=== PATIENT | male | born 1945 | race Caucasian/White ===

== ENCOUNTER 2017-01-22 08:41 | Outpatient (CLI) | payer MEDICARE, BC | END 2017-01-22 08:42 | disposition home or self-care (01) | DX: I48.0 Paroxysmal atrial fibrillation (principal); E78.5 Hyperlipidemia, unspecified ==

== ENCOUNTER 2017-03-07 09:48 | Outpatient (CLI) | payer MEDICARE, BC | END 2017-03-07 09:49 | disposition home or self-care (01) | DX: R19.7 Diarrhea, unspecified (principal) ==

== ENCOUNTER 2017-03-11 08:00 | Outpatient (CLI) | payer MEDICARE, BC | END 2017-03-11 23:59 | disposition home or self-care (01) | DX: R19.7 Diarrhea, unspecified (principal) ==

== ENCOUNTER 2017-03-12 18:44 | Outpatient (CLI) | payer MEDICARE, BC | END 2017-03-12 18:45 | disposition home or self-care (01) | DX: R19.7 Diarrhea, unspecified (principal) ==

== ENCOUNTER 2019-06-16 08:00 | Outpatient (CLI) | payer MEDICARE, BC ==
[2019-06-16 12:32] LABS: BASOPHILS # (AUTO) 0.1 10^3/uL (0.0-0.1); BASOPHILS % (AUTO) 0.9 %; EOSINOPHILS # (AUTO) 0.4 10^3/uL (0.0-0.7); EOSINOPHILS % (AUTO) 6.4 %; HGB - HEMOGLOBIN 14.1 g/dL (14.0-18.0); LYMPHOCYTES # (AUTO) 2.1 10^3/uL (1.5-3.5); LYMPHOCYTES % (AUTO) 36.6 %; MEAN CORPUSCULAR HEMOGLOBIN 30.1 pg (27.0-31.0); MEAN CORPUSCULAR HGB CONC 32.7 g/dL (32.0-36.0); MEAN CORPUSCULAR VOLUME 91.9 fL (80.0-94.0); MEAN PLATELET VOLUME 10.5 fL (7.4-11.4); MONOCYTES # (AUTO) 0.6 10^3/uL (0.0-1.0); MONOCYTES % (AUTO) 10.8 %; NEUTROPHILS # (AUTO) 2.5 10^3/uL (1.5-6.6); NEUTROPHILS % (AUTO) 45.1 %; PLT - PLATELET COUNT 200 10^3/uL (130-450); RED BLOOD COUNT 4.69 10^6/uL (4.70-6.10); RED CELL DISTRIBUTION WIDTH 14.3 % (12.0-15.0); WHITE BLOOD COUNT 5.6 x10^3/uL (4.8-10.8)
[2019-06-16 12:54] LABS: ALBUMIN/GLOBULIN RATIO 1.4 (1.0-2.2); BILIRUBIN,TOTAL 0.5 mg/dL (0.2-1.0); CALCIUM 9.5 mg/dL (8.5-10.3); CREATININE 0.9 mg/dL (0.6-1.2); TOTAL PROTEIN 6.8 g/dL (6.7-8.2)
== END 2019-06-16 08:01 | disposition home or self-care (01) ==
LOC: LAB.WCP 08:00
PROVIDERS: ATTEND Internal Medicine Gastroenterology
DX: K52.9 Noninfective gastroenteritis and colitis, unspecified (principal); I48.0 Paroxysmal atrial fibrillation; I25.10 Atherosclerotic heart disease of native coronary artery without angina pectoris
CPT/HCPCS: 36415; 80053; 85025

== ENCOUNTER 2019-06-30 10:47 | Day surgery (SDC) | payer MEDICARE, BC ==
[2019-06-30] MEDS ORDERED: LACTATED RINGERS 1,000 ML IV ONE (11:11)
[2019-06-30] MEDS ORDERED: fentaNYL 250 MCG/5 ML VIAL IVP ONE (13:36)
[2019-06-30] MEDS ORDERED: MIDAZOLAM 2 MG/2 ML VIAL IVP ONE (13:36)
[2019-06-30 14:55] VITALS: BP 108/77
== END 2019-06-30 10:48 | disposition home or self-care (01) ==
LOC: SDS 10:47
PROVIDERS: ATTEND Internal Medicine Gastroenterology
PROC: 0DBF8ZX Excision of Right Large Intestine, Via Natural or Artificial Opening Endoscopic, Diagnostic (ICD-10-PCS; 2019-06-30)
PROC: 0DBG8ZX Excision of Left Large Intestine, Via Natural or Artificial Opening Endoscopic, Diagnostic (ICD-10-PCS; 2019-06-30)
PROC: 0DBM8ZZ Excision of Descending Colon, Via Natural or Artificial Opening Endoscopic (ICD-10-PCS; principal; 2019-06-30 12:15)
DX: K58.0 Irritable bowel syndrome with diarrhea (principal); D12.4 Benign neoplasm of descending colon; I48.0 Paroxysmal atrial fibrillation; Z79.01 Long term (current) use of anticoagulants; Z79.899 Other long term (current) drug therapy; Z85.46 Personal history of malignant neoplasm of prostate
CPT/HCPCS: 45380; 45385; 85610; J3010; J7120

== ENCOUNTER 2019-07-10 08:00 | Outpatient (CLI) | payer MEDICARE, BC | END 2019-07-10 23:59 | disposition home or self-care (01) | LOC: LAB.WCP 08:00 | PROVIDERS: ATTEND Internal Medicine Gastroenterology | DX: R19.7 Diarrhea, unspecified (principal) | CPT/HCPCS: 36415; 82784; 83516 ==

== ENCOUNTER 2019-07-21 08:00 | Outpatient (CLI) | payer MEDICARE, BC | END 2019-07-21 23:59 | disposition home or self-care (01) | LOC: LAB.N 08:00 | PROVIDERS: ATTEND Internal Medicine Cardiovascular Disease | DX: I48.0 Paroxysmal atrial fibrillation (principal) | CPT/HCPCS: 85610 ==

== ENCOUNTER 2019-08-05 08:00 | Outpatient (CLI) | payer MEDICARE, BC ==
[2019-08-05 12:28] LABS: BASOPHILS % (AUTO) 0.5 %; EOSINOPHILS # (AUTO) 0.3 10^3/uL (0.0-0.7); EOSINOPHILS % (AUTO) 4.3 %; HGB - HEMOGLOBIN 14.2 g/dL (14.0-18.0); LYMPHOCYTES # (AUTO) 2.1 10^3/uL (1.5-3.5); LYMPHOCYTES % (AUTO) 33.6 %; MEAN CORPUSCULAR HEMOGLOBIN 29.1 pg (27.0-31.0); MEAN CORPUSCULAR HGB CONC 32.5 g/dL (32.0-36.0); MEAN CORPUSCULAR VOLUME 89.5 fL (80.0-94.0); MEAN PLATELET VOLUME 11.2 fL (7.4-11.4); MONOCYTES # (AUTO) 0.6 10^3/uL (0.0-1.0); MONOCYTES % (AUTO) 9.3 %; NEUTROPHILS # (AUTO) 3.3 10^3/uL (1.5-6.6); NEUTROPHILS % (AUTO) 52.1 %; PLT - PLATELET COUNT 164 10^3/uL (130-450); RED BLOOD COUNT 4.88 10^6/uL (4.70-6.10); RED CELL DISTRIBUTION WIDTH 14.4 % (12.0-15.0); WHITE BLOOD COUNT 6.3 x10^3/uL (4.8-10.8)
[2019-08-05 12:58] LABS: ALBUMIN 4.3 g/dL (3.2-5.5); ALBUMIN/GLOBULIN RATIO 1.5 (1.0-2.2); ALKALINE PHOSPHATASE 41 IU/L (42-121); ALT ALANINE AMINOTRANSFERASE 21 IU/L (10-60); AST ASPARTATE AMINOTRANSFERASE 25 IU/L (10-42); BILIRUBIN,TOTAL 0.5 mg/dL (0.2-1.0); BUN - BLOOD UREA NITROGEN 25 mg/dL (6-20); CALCIUM 9.4 mg/dL (8.5-10.3); CARBON DIOXIDE - CO2 24 mmol/L (21-32); CHLORIDE 106 mmol/L (101-111); CHOL/HDL RATIO 2.8 (<5.0); CHOLESTEROL 189 mg/dL; CREATININE 1.1 mg/dL (0.6-1.2); GFR - MDRD 65 (>89); GLUCOSE 103 mg/dL (70-100); HDL CHOLESTEROL 68 mg/dL; LDL CHOLESTEROL,CALCULATED 109 mg/dL; LDL/HDL RATIO 1.6 (<3.6); SODIUM 138 mmol/L (135-145); TOTAL PROTEIN 7.1 g/dL (6.7-8.2); VLDL CHOLESTEROL 12 mg/dL
== END 2019-08-05 23:59 ==
LOC: LAB.WCP 08:00
PROVIDERS: ATTEND Family Medicine
DX: I48.0 Paroxysmal atrial fibrillation (principal); I25.10 Atherosclerotic heart disease of native coronary artery without angina pectoris; C61 Malignant neoplasm of prostate
CPT/HCPCS: 36415; 80053; 80061; 83721; 83735; 84153; 85025

== ENCOUNTER 2019-11-17 13:32 | Outpatient (CLI) | payer MEDICARE, BC ==
--- NOTE | 2019-11-17 16:19 | XRAY Report ---
Reason: LEFT RT KNEE PAIN Procedure Date: 11/17/2019 Accession Number: [id number] / [id number] Procedure: XR - Knee 3 View BILAT CPT Code: Final Report FULL RESULT: EXAMS: 1. Right Knee Radiography 2. Left Knee Radiography EXAM DATE:11/17/2019 01:57 PM. CLINICAL HISTORY:LEFT RT KNEE PAIN. COMPARISON: None. TECHNIQUE: 3 views each. FINDINGS: Right Knee: Bones: Normal. No fractures or bone lesions. Joints: 3 compartment joint space narrowing with marginal lipping. Chondrocalcinosis compatible with pseudogout. Trace joint effusion. Soft Tissues: Vascular calcifications. Left Knee: Bones: Normal. No fractures or bone lesions. Joints: 3 compartment joint space narrowing. Minimal marginal lipping. Moderate to large joint effusion. Soft Tissues: Vascular calcifications. IMPRESSION: 1. Moderate degenerative disease on the right with chondrocalcinosis. 2. Mild degenerative joint disease on the left with moderate to large joint effusion. RADIA
== END 2019-11-17 13:33 | disposition home or self-care (01) ==
LOC: DI 13:32
PROVIDERS: ATTEND Family Medicine
DX: M17.0 Bilateral primary osteoarthritis of knee (principal); M11.261 Other chondrocalcinosis, right knee; M25.462 Effusion, left knee

== ENCOUNTER 2020-09-13 08:00 | Outpatient (CLI) | payer MEDICARE, BC ==
[2020-09-13 12:21] LABS: BASOPHILS % (AUTO) 0.7 %; EOSINOPHILS # (AUTO) 0.2 10^3/uL (0.0-0.7); EOSINOPHILS % (AUTO) 2.7 %; HGB - HEMOGLOBIN 13.7 g/dL (14.0-18.0); LYMPHOCYTES # (AUTO) 1.6 10^3/uL (1.5-3.5); LYMPHOCYTES % (AUTO) 27.4 %; MEAN CORPUSCULAR HEMOGLOBIN 29.6 pg (27.0-31.0); MEAN CORPUSCULAR HGB CONC 32.7 g/dL (32.0-36.0); MEAN CORPUSCULAR VOLUME 90.5 fL (80.0-94.0); MEAN PLATELET VOLUME 10.5 fL (7.4-11.4); MONOCYTES # (AUTO) 0.5 10^3/uL (0.0-1.0); MONOCYTES % (AUTO) 9.3 %; NEUTROPHILS # (AUTO) 3.5 10^3/uL (1.5-6.6); NEUTROPHILS % (AUTO) 59.6 %; PLT - PLATELET COUNT 224 10^3/uL (130-450); RED BLOOD COUNT 4.63 10^6/uL (4.70-6.10); WHITE BLOOD COUNT 5.8 x10^3/uL (4.8-10.8)
[2020-09-13 12:33] LABS: CALCIUM 9.6 mg/dL (8.5-10.3)
[2020-09-13 12:52] LABS: HEMOGLOBIN A1c% 5.8 % (4.27-6.07)
== END 2020-09-13 23:59 | disposition home or self-care (01) ==
LOC: LAB.WCP 08:00
PROVIDERS: ATTEND Family Medicine
DX: I25.10 Atherosclerotic heart disease of native coronary artery without angina pectoris (principal)
CPT/HCPCS: 36415; 80048; 83036; 85025

== ENCOUNTER 2020-09-20 08:49 | Outpatient (CLI) | payer MEDICARE, BC ==
[2020-09-20] MEDS ORDERED: AMINOPHYLLINE 500 MG/20 ML VIAL ONE (11:21)
[2020-09-20] MEDS ORDERED: REGADENOSON 0.4 MG/5 ML SYRINGE IVP ONE ×2 (11:21→14:06)
--- NOTE | 2020-09-20 14:57 | CARDIAC PROCEDURE NOTE ---
DATE OF SERVICE: 09/13/2020 Physician: Chantal Fraser MD, [facility] INDICATION: Coronary artery disease. CARDIAC RISK FACTORS: Male gender and hyperlipidemia. The patient also has known CAD with stenting done about 20 years ago. DESCRIPTION OF PROCEDURE: After signing informed consent, the patient underwent a Lexiscan pharmaceutical stress test with nuclear myocardial perfusion imaging. RESTING HEART RATE: 97. PEAK HEART RATE: 150 (104% predicted maximum heart rate for age). RESTING BLOOD PRESSURE: 131/98. PEAK BLOOD PRESSURE: 126/91. Lexiscan was infused per protocol. The patient had brief flushing and shortness of breath. He had no chest pain or other symptoms. Oxygen saturation remained 98-99% on room air throughout the test. RESTING EKG: Atrial fibrillation/flutter, LVH voltage. EKG AT PEAK: New [address] depressions developed in leads V4 through V6 and new downsloping ST depressions developed in leads II, III and aVF. These EKG changes resolved slowly over 4 minutes. SUMMARY: 1. Abnormal resting EKG with rhythm showing atrial fibrillation/flutter. 2. New ST segment changes developed, suggesting ischemia. 3. Nuclear images showed a moderate sized fixed defect of the septum, but no areas of ischemia, and a preserved LVEF. There was comparison made to a 05/18/08 scan which then had moderate ischemia in the same distribution in the septum. This suggests that there has been a completed WV in that region, cannot time how recent. IMPRESSION: 1. Abnormal stress test showing a septal WV, cannot grade how recent. RECOMMENDATIONS: 1. Cardiology evaluation advised. cc: Liam Bear DO TD: 09/20/2020 12:59 [facility]
--- NOTE | 2020-09-20 16:07 | Nuclear Medicine Report ---
PROCEDURE: Rest and exercise myocardial perfusion SPECT with gated imaging and ejection fraction INDICATIONS: CAD RADIOPHARMACEUTICAL: 8.1 mCi Tc-99m Myoview IV at rest and 5.0 mCi Tc-99m Myoview IV at peak exercis e. Ozl-vdy-hzbkbszl was performed. TECHNIQUE: Radiopharmaceutical was injected at peak stress test, and also at rest. SPECT images wer e obtained. SPECT myocardial perfusion images were displayed in short axis, horizontal long axis, an d vertical long axis views. Gated images were reviewed using Auto[employer]ANT software. COMPARISON: A report of myocardial perfusion scan dated 05/18/2008. FINDINGS: Raw data: There is good myocardial labeling by radiotracer. No significant motion artifacts. Lung- to-heart ratio is 0.61 (normal is less than 0.38 for tetrafosmin tracer). Left ventricle function: Gated images demonstrate normal left ventricle wall thickening. No segment al wall motion abnormality. No transient ischemic dilation; TID is 1.00 (normal less than 1.3). The left ventricle resting end-diastolic volume is normal. Left ventricle stress ejection fraction is 7 1%; normal values are above 45%. Myocardial perfusion: There is a moderate size, kewk-ls-wyskziiizs severe, fixed perfusion defect in the septum, consistent with myocardial infarction. No reversible perfusion defects to suggest myoca rdial ischemia. Based on a prior report, there was hajv-md-vgjmrond ischemia in the septum on 008. IMPRESSION: 1. Abnormal myocardial perfusion images. There is a moderate size, mhoi-au-zgpumuuyju severe, fixed d efect in the left ventricular septum, consistent with myocardial infarction. 2. No reversible perfusion defect to suggest myocardial ischemia on the current exam. 3. Normal left ventricular volume and systolic function. PQRS ATTESTATIONS: Measure 322 - Is this imaging test primarily performed on a low-risk surgery patient for preoperative evaluation within 30 days preceding their low-risk non-cardiac surgery? Low-risk surgery is defined as cardiac or myocardial infarction less than 1%, including (but not limited to) endoscopic pr ocedures, superficial procedures, cataract surgery, and excisional breast surgery: Answer: No Measure 323 - Is this imaging test performed primarily for the monitoring of an asymptomatic patient who had percutaneous coronary intervention on the visit date or within 2 years of the visit date? An swer: No Measure 324 - Is this imaging test performed primarily for the initial detection and risk assessment on an asymptomatic, low coronary heart disease patient? Low CHD risk definition = clinicians should consider the maximum number of available patient factors used to estimate risk based on [place] (A TP III criteria), typically age, gender, diabetes, smoking status, and use of blood pressure medicati on, and integrate age appropriate estimates for missing elements, such as LDL or standard blood press ure. Answer: No Reviewed by: Chencho Shields MD on 09/20/2020 4:06 PM PST Approved by: Chencho Shields MD on 09/20/2020 4:06 PM PST Station ID: [id number]
== END 2020-09-20 08:50 | disposition home or self-care (01) ==
LOC: DI 08:49
PROVIDERS: ATTEND Family Medicine
DX: I25.10 Atherosclerotic heart disease of native coronary artery without angina pectoris (principal); R94.31 Abnormal electrocardiogram [ECG] [EKG]
CPT/HCPCS: 78452; 93017; A9500; J2785

== ENCOUNTER 2020-11-10 07:50 | Outpatient (CLI) | payer MEDICARE, BC ==
[2020-11-10 13:34] LABS: BASOPHILS # (AUTO) 0.1 10^3/uL (0.0-0.1); BASOPHILS % (AUTO) 0.9 %; EOSINOPHILS # (AUTO) 0.6 10^3/uL (0.0-0.7); EOSINOPHILS % (AUTO) 9.5 %; HCT - HEMATOCRIT 43.1 % (42.0-52.0); HGB - HEMOGLOBIN 13.9 g/dL (14.0-18.0); LYMPHOCYTES # (AUTO) 1.8 10^3/uL (1.5-3.5); LYMPHOCYTES % (AUTO) 27.9 %; MEAN CORPUSCULAR HEMOGLOBIN 29.4 pg (27.0-31.0); MEAN CORPUSCULAR HGB CONC 32.3 g/dL (32.0-36.0); MEAN CORPUSCULAR VOLUME 91.1 fL (80.0-94.0); MEAN PLATELET VOLUME 11.3 fL (7.4-11.4); MONOCYTES # (AUTO) 0.5 10^3/uL (0.0-1.0); MONOCYTES % (AUTO) 7.3 %; NEUTROPHILS # (AUTO) 3.4 10^3/uL (1.5-6.6); NEUTROPHILS % (AUTO) 54.2 %; PLT - PLATELET COUNT 162 10^3/uL (130-450); RED BLOOD COUNT 4.73 10^6/uL (4.70-6.10); RED CELL DISTRIBUTION WIDTH 14.1 % (12.0-15.0); WHITE BLOOD COUNT 6.3 x10^3/uL (4.8-10.8)
[2020-11-10 13:41] LABS: CALCIUM 9.7 mg/dL (8.5-10.3); CREATININE 0.9 mg/dL (0.6-1.2); POTASSIUM 4.1 mmol/L (3.5-5.0)
== END 2020-11-10 23:59 | disposition home or self-care (01) ==
LOC: LAB.WCP 07:50
PROVIDERS: ATTEND Nurse Practitioner
DX: I25.10 Atherosclerotic heart disease of native coronary artery without angina pectoris (principal); Z79.899 Other long term (current) drug therapy
CPT/HCPCS: 36415; 80048; 85025

== ENCOUNTER 2020-12-30 12:40 | Outpatient (CLI) | payer MEDICARE, BC | END 2020-12-30 12:41 | disposition home or self-care (01) | LOC: COV 12:40 | PROVIDERS: ATTEND Surgery | DX: Z01.812 Encounter for preprocedural laboratory examination (principal); K40.90 Unilateral inguinal hernia, without obstruction or gangrene, not specified as recurrent; Z20.822 Contact with and (suspected) exposure to COVID-19 ==

== ENCOUNTER 2021-01-03 06:20 | Day surgery (SDC) | payer MEDICARE, BC ==
[~2021-01-03 06:20] MED LIST: LACTATED RINGERS 1,000 ML IV ONE
[2021-01-03] MEDS ORDERED: ceFAZolin 2 GM/50 ML 2 GM/50 ML BAG IV ONE (06:33)
[2021-01-03] MEDS ORDERED: LIDOCAINE 2%-EPI 1:100000 20 ML MDV ONE (07:04)
[2021-01-03] MEDS ORDERED: BUPIVACAINE 0.25% PF 10 ML VIAL ONE (07:05)
--- NOTE | 2021-01-03 07:30 | ANESTHESIA ---
Pre-Anesthesia VS, & Labs - Diagnosis R inguinal hernia - Procedure R inguinal hernia repair Vital Signs: Temp Pulse Resp BP Pulse Ox 36.5 C 66 16 128/84 H 98 01/03/21 06:43 01/03/21 06:43 01/03/21 06:43 01/03/21 06:43 01/03/21 06:43 Height: 6 ft Weight (kg): 79.2 kg Body Mass Index: 23.6 BMI Classification: Healthy weight - NPO >8 hours - Lab Results Lab results reviewed: Yes Home Medications and Allergies Atorvastatin [Lipitor] 40 mg PO DAILY 11/15/15 Digoxin 0.125 mg PO DAILY 11/15/15 Ibuprofen 2 tab PO DAILY PRN 11/15/15 Loperamide HCl [Loperamide] 4 mg PO BID 11/15/15 Psyllium [Metamucil] 1 packet PO BID 11/15/15 Warfarin Sodium [Coumadin] 7.5 mg PO DAILY 11/15/15 Allergies/Adverse Reactions: Allergies Allergy/AdvReac Type Severity Reaction Status Date / Time No Known Drug Allergies Allergy Verified 01/03/21 06:57 Anes History & Medical History - Anesthetic History Anesthesia Complications: reports: No previous complications Family history of Anesthesia Complications: Denies Family history of Malignant Hyperthermia: Denies - Medical History Cardiovascular: reports: High cholesterol, Coronary artery disease, Atrial fibrillation Pulmonary: reports: None Gastrointestinal: reports: Colon polyps, Other Urinary: reports: Other Musculoskeletal: reports: Osteoarthritis Endocrine/Autoimmune: reports: None Skin: reports: None - Surgical History General: reports: Colonoscopy Eyes Ears Nose Throat (EENT): reports: Cataracts Cardiothoracic: reports: Coronary stent Urologic: reports: Prostatic surgery Orthopedic: reports: Hip replacement Exam General: Alert, Oriented x3, Cooperative Dental: WNL Mouth Opening: Greater than 4 Fingerbreadths Neck Mobility: Normal Mallampati classification: I Thyromental Distance: 4-6 cm Respiratory: Lungs clear, Normal breath sounds, No respiratory distress Cardiovascular: Other (AF <100) Neurological: Normal speech Mental/Cognitive Status: Alert/Oriented X3, Normal for patient Cognitive Status: Within normal limits Plan Anesthesia Type: MAC Consent for Procedure(s) Verified and Reviewed: Yes Code Status: Attempt Resuscitation ASA classification: 2-Mild systemic disease Is this case an emergency?: No
[2021-01-03] MEDS ORDERED: PROPOFOL 500 MG/50 ML 500 MG/50 ML VIAL ONE (07:41)
[2021-01-03] MEDS ORDERED: LIDOCAINE 1% 50 ML MDV ONE (07:59)
[2021-01-03] MEDS ORDERED: LIDOCAINE 1% 50 ML MDV SUBQ ONE (08:04)
[2021-01-03] MEDS ORDERED: BUPIVACAINE 0.25% PF 10 ML VIAL SUBQ ONE (08:04)
[2021-01-03] MEDS ORDERED: KETOROLAC 30 MG/ML VIAL ONE (08:22)
[2021-01-03] MEDS ORDERED: LACTATED RINGERS 1,000 ML IV ONE (09:03)
[2021-01-03] MEDS ORDERED: HYDROcod/ACETAM 5/325 MG TABLET PO PRN (09:04)
--- NOTE | 2021-01-03 09:08 | OPERATIVE REPORT ---
Operative Report - General Procedure Date: 01/03/21 Pre-Op Diagnosis: right inguinal hernia Procedure Performed: open right inguinal hernia repair with mesh Post Op Diagnosis: indirect rih - Procedure Note Primary Surgeon: beth guerrero Anesthesia Technique: Local, MAC Pathology: not sent. sac and fat removed Estimated Blood Loss (mL): 5 Complications: none
[2021-01-03 09:33] VITALS: BP 113/84
--- NOTE | 2021-01-03 09:36 | PROCEDURE REPORT ---
DATE OF SERVICE: 01/03/2021 Physician: James Neves MD PREOPERATIVE DIAGNOSIS: Right inguinal hernia. POSTOPERATIVE DIAGNOSIS: Right inguinal hernia, indirect. PROCEDURE PERFORMED: Open right inguinal hernia repair with mesh, Ana. SURGEON: James Neves MD TECHNICIAN SUPPORT ASSOCIATION: None. ANESTHESIA: Monitored anesthesia care, IV sedation, local anesthesia. COMPLICATIONS: None. SPECIMEN: Herniated preperitoneal adipose tissue and indirect hernia sac removed; however, not sent for pathology. ESTIMATED BLOOD LOSS: Less than 5 mL DRAINS: None. PROSTHETIC: Polypropylene mesh placed in Ana fashion. FINDINGS: As above, an indirect inguinal hernia with a fair amount of scar tissue. The ilioinguinal nerve was scarred to the external ring. It was carefully released. All 3 nerves were carefully protected and preserved. The iliohypogastric nerve lay just medial to the mesh. INDICATIONS FOR PROCEDURE: The patient is an active 75-year-old gentleman with a very symptomatic right inguinal hernia. He presents for open repair with mesh. Risks discussed, alternatives discussed, all questions answered and consent obtained. DESCRIPTION OF PROCEDURE: The patient was properly identified and brought to the operating room and placed in supine position. He voided prior to surgery. Monitored anesthesia care and IV sedation was given. He was prepped and draped in a sterile fashion and given preoperative IV antibiotics. Local anesthetic was given throughout the procedure. A 5 cm incision was made in the right inguinal region just cephalad of the pubic tubercle. Dissection proceeded sharply with cutting current. The superficial epigastric vein was identified, clamped, divided, and tied with 3-0 Vicryl. He had an additional small arterial which was also tied with a 3-0 Vicryl. The aponeurosis was opened in the direction of its fibers, extending to the external ring. The ilioinguinal nerve was sharply mobilized away from the external ring. Cord structures were mobilized and brought up. The shelving border of Poupart's ligament was sharply developed and Scotty's ligament, pubic tubercle defined. Patient had chronic scar tissue, which was carefully released. The ilioinguinal nerve was kept with the cord structures. The indirect hernia sac was mobilized and brought up. It was suture ligated with a 2-0 silk. Preperitoneal adipose tissue was removed with clamps and 2-0 silk tie. The mesh was then cut to size and with tails. It was placed and secured with multiple interrupted 0 Ethibond or Ti-Cron sutures. Sutures were placed close to the pubic tubercle along the shelving border of Poupart's ligament and medially along musculature or fascia of the internal oblique. The medial tail of the mesh was secured to the shelving border of Poupart's ligament with two interrupted 0 Ethibond sutures, recreating the internal ring of appropriate size. The aponeurosis was closed with a running 2-0 Vicryl. Mine's was closed with interrupted 3-0 Vicryl suture. Skin was closed with a running 4-0 Monocryl subcuticular suture. A dressing was applied. He tolerated the procedure well and transferred for himself to [facility] and was brought to recovery in good condition. TD: 01/03/2021 09:27 GABRIELE
--- NOTE | 2021-01-03 13:52 | ANESTHESIA POST OP EVALUATION ---
Anesthesia Post Eval - Post Anesthesia Eval Vitals: Last Vital Signs Temp 36.3 C L 01/03/21 09:31 Pulse 71 01/03/21 09:31 Resp 18 01/03/21 09:31 BP 113/84 H 01/03/21 09:31 Pulse Ox 98 01/03/21 09:31 CV Function Including HR & BP: positive: Stable Pain Control: positive: Satisfactory Nausea & Vomiting: positive: Negative Mental Status: positive: Baseline Respiratory Status: Airway Patent Hydration Status: Satisfactory Anesthesia Complications: positive: None
== END 2021-01-03 06:21 | disposition home or self-care (01) ==
LOC: SDS 06:20
PROVIDERS: ATTEND Surgery
DX: K40.90 Unilateral inguinal hernia, without obstruction or gangrene, not specified as recurrent (principal); I48.0 Paroxysmal atrial fibrillation; I25.10 Atherosclerotic heart disease of native coronary artery without angina pectoris; Z95.5 Presence of coronary angioplasty implant and graft; Z79.01 Long term (current) use of anticoagulants
CPT/HCPCS: 49505; C1781; J0690; J7120

== ENCOUNTER 2021-04-17 16:41 | Outpatient (CLI) | payer MEDICARE, BC | END 2021-04-17 16:42 | disposition home or self-care (01) | LOC: COV 16:41 | PROVIDERS: ATTEND Internal Medicine Cardiovascular Disease | DX: Z01.812 Encounter for preprocedural laboratory examination (principal); I25.118 Atherosclerotic heart disease of native coronary artery with other forms of angina pectoris; Z20.822 Contact with and (suspected) exposure to COVID-19 ==

== ENCOUNTER 2021-05-10 08:00 | Outpatient (CLI) | payer MEDICARE, BC ==
[2021-05-10 12:21] LABS: BASOPHILS # (AUTO) 0.1 10^3/uL (0.0-0.1); BASOPHILS % (AUTO) 1.1 %; EOSINOPHILS # (AUTO) 0.5 10^3/uL (0.0-0.7); EOSINOPHILS % (AUTO) 10.4 %; HCT - HEMATOCRIT 41.6 % (42.0-52.0); HGB - HEMOGLOBIN 13.4 g/dL (14.0-18.0); LYMPHOCYTES # (AUTO) 1.5 10^3/uL (1.5-3.5); LYMPHOCYTES % (AUTO) 30.7 %; MEAN CORPUSCULAR HEMOGLOBIN 28.6 pg (27.0-31.0); MEAN CORPUSCULAR HGB CONC 32.2 g/dL (32.0-36.0); MEAN CORPUSCULAR VOLUME 88.7 fL (80.0-94.0); MEAN PLATELET VOLUME 10.7 fL (7.4-11.4); MONOCYTES # (AUTO) 0.5 10^3/uL (0.0-1.0); MONOCYTES % (AUTO) 10.8 %; NEUTROPHILS # (AUTO) 2.2 10^3/uL (1.5-6.6); NEUTROPHILS % (AUTO) 46.8 %; PLT - PLATELET COUNT 180 10^3/uL (130-450); RED BLOOD COUNT 4.69 10^6/uL (4.70-6.10); RED CELL DISTRIBUTION WIDTH 14.9 % (12.0-15.0); WHITE BLOOD COUNT 4.7 x10^3/uL (4.8-10.8)
[2021-05-10 13:12] LABS: ALBUMIN 4.4 g/dL (3.2-5.5); ALBUMIN/GLOBULIN RATIO 1.6 (1.0-2.2); ALKALINE PHOSPHATASE 51 IU/L (42-121); ALT ALANINE AMINOTRANSFERASE 21 IU/L (10-60); AST ASPARTATE AMINOTRANSFERASE 25 IU/L (10-42); BILIRUBIN,TOTAL 0.6 mg/dL (0.2-1.0); BUN - BLOOD UREA NITROGEN 18 mg/dL (6-20); CALCIUM 9.5 mg/dL (8.5-10.3); CARBON DIOXIDE - CO2 25 mmol/L (21-32); CHLORIDE 103 mmol/L (101-111); CHOL/HDL RATIO 2.7 (<5.0); CHOLESTEROL 173 mg/dL; GFR - MDRD 72 (>89); GLUCOSE 97 mg/dL (70-100); HDL CHOLESTEROL 64 mg/dL; LDL CHOLESTEROL,CALCULATED 100 mg/dL; LDL/HDL RATIO 1.6 (<3.6); POTASSIUM 4.4 mmol/L (3.5-5.0); SODIUM 137 mmol/L (135-145); TOTAL PROTEIN 7.1 g/dL (6.7-8.2); TRIGLYCERIDES 45 mg/dL; VLDL CHOLESTEROL 9 mg/dL
[2021-05-10 13:33] LABS: DIGOXIN < 0.2 ng/mL
== END 2021-05-10 23:59 | disposition home or self-care (01) ==
LOC: LAB.WCP 08:00
PROVIDERS: ATTEND Family Medicine
DX: I25.10 Atherosclerotic heart disease of native coronary artery without angina pectoris (principal); E78.5 Hyperlipidemia, unspecified; I48.0 Paroxysmal atrial fibrillation; C61 Malignant neoplasm of prostate; Z90.79 Acquired absence of other genital organ(s)
CPT/HCPCS: 36415; 80053; 80061; 80162; 83721; 84153; 85025

== ENCOUNTER 2022-07-10 10:48 | Outpatient (CLI) | payer MEDICARE, BC ==
[2022-07-10 18:28] LABS: BASOPHILS # (AUTO) 0.1 10^3/uL (0.0-0.1); BASOPHILS % (AUTO) 1.3 %; EOSINOPHILS # (AUTO) 0.5 10^3/uL (0.0-0.7); EOSINOPHILS % (AUTO) 9.7 %; HCT - HEMATOCRIT 40.6 % (42.0-52.0); HGB - HEMOGLOBIN 13.8 g/dL (14.0-18.0); LYMPHOCYTES # (AUTO) 1.7 10^3/uL (1.5-3.5); LYMPHOCYTES % (AUTO) 30.6 %; MEAN CORPUSCULAR VOLUME 91.2 fL (80.0-94.0); MEAN PLATELET VOLUME 10.6 fL (7.4-11.4); MONOCYTES # (AUTO) 0.6 10^3/uL (0.0-1.0); NEUTROPHILS # (AUTO) 2.7 10^3/uL (1.5-6.6); RED BLOOD COUNT 4.45 10^6/uL (4.70-6.10); RED CELL DISTRIBUTION WIDTH 14.3 % (12.0-15.0); WHITE BLOOD COUNT 5.6 x10^3/uL (4.8-10.8)
[2022-07-10 18:57] LABS: PLATELET MORPHOLOGY PLATELET CLUMPING (NORMAL)
[2022-07-10 18:58] LABS: PLATELET ESTIMATE, MANUAL DECREASED (<130,000) (NORMAL)
== END 2022-07-10 10:49 | disposition home or self-care (01) ==
LOC: LAB.N 10:48
PROVIDERS: ATTEND Physician Assistant
DX: D69.6 Thrombocytopenia, unspecified (principal)
CPT/HCPCS: 36415; 85025

== ENCOUNTER 2022-07-25 14:12 | Outpatient (CLI) | payer MEDICARE, BC ==
[2022-07-25 18:09] LABS: BASOPHILS # (AUTO) 0.1 10^3/uL (0.0-0.1); BASOPHILS % (AUTO) 0.7 %; EOSINOPHILS # (AUTO) 0.3 10^3/uL (0.0-0.7); EOSINOPHILS % (AUTO) 4.6 %; HCT - HEMATOCRIT 39.5 % (42.0-52.0); HGB - HEMOGLOBIN 13.4 g/dL (14.0-18.0); LYMPHOCYTES # (AUTO) 1.5 10^3/uL (1.5-3.5); MEAN CORPUSCULAR HEMOGLOBIN 30.7 pg (27.0-31.0); MEAN CORPUSCULAR HGB CONC 33.9 g/dL (32.0-36.0); MEAN CORPUSCULAR VOLUME 90.6 fL (80.0-94.0); MEAN PLATELET VOLUME 12.4 fL (7.4-11.4); MONOCYTES # (AUTO) 0.7 10^3/uL (0.0-1.0); MONOCYTES % (AUTO) 9.1 %; NEUTROPHILS # (AUTO) 4.6 10^3/uL (1.5-6.6); NEUTROPHILS % (AUTO) 64.5 %; PLT - PLATELET COUNT 91 10^3/uL (130-450); RED BLOOD COUNT 4.36 10^6/uL (4.70-6.10); RED CELL DISTRIBUTION WIDTH 14.3 % (12.0-15.0); WHITE BLOOD COUNT 7.1 x10^3/uL (4.8-10.8)
== END 2022-07-25 14:13 | disposition home or self-care (01) ==
LOC: LAB.N 14:12
PROVIDERS: ATTEND Physician Assistant
DX: D69.6 Thrombocytopenia, unspecified (principal)
CPT/HCPCS: 36415; 85025

== ENCOUNTER 2023-01-31 14:32 | Emergency (ER) | payer MEDICARE, BC ==
--- NOTE | 2023-01-31 15:04 | ED Physician Documentation ---
History of Present Illness - Stated complaint Stated Complaint: HEADACHE/L EYE PX - Chief complaint Chief Complaint: Heent - History obtained from History obtained from: Patient - Additonal information Additional information: Patient is a 77-year-old male presenting for evaluation of headache and a rash to the left side of his scalp. Patient reports noticing discomfort to his head for the past 4 days where he states it feels like his scalp is very sensitive. He then noticed a rash develop to the scalp yesterday. He reported having Worsening sensitivity this morning prompting him to call his PCP - He says that it hurts to brush his hair with his metal brush. His PCP was unable to fit him into her schedule until early next week and recommended he come to the emergency department for evaluation. He denies any visual disturbances. He reports a prior history of shingles in the same distribution back in 1977. He is unsure if he has received the shingles vaccine.He is on warfarin for history of atrial fibrillation and reports it was last checked 10 days ago and his INR was 2.4. He denies head injury.He took Excedrin this morning with some improvement in his headache. Review of Systems Constitutional: denies: Fever Cardiac: denies: Chest pain / pressure Respiratory: denies: Dyspnea GI: denies: Abdominal Pain Skin: reports: Rash Neurologic: reports: Headache PD PAST MEDICAL HISTORY - Past Medical History Past Medical History: Yes Cardiovascular: High cholesterol, Coronary artery disease, Atrial fibrillation Respiratory: None Neuro: None Endocrine/Autoimmune: None GI: Colon polyps, Other : Other HEENT: Chronic vision loss, Chronic hearing loss Psych: None Musculoskeletal: Osteoarthritis Derm: Other Other Past Medical History: shingles - Past Surgical History Past Surgical History: Yes General: Colonoscopy Ortho: Hip replacement Cardiovascular: Coronary stent HEENT: Cataracts - Present Medications Home Medications: Ambulatory Orders Medication Instructions Recorded Confirmed Atorvastatin [Lipitor] 40 mg PO DAILY 11/15/15 01/31/23 Warfarin Sodium [Coumadin] 5 mg PO DAILY 11/15/15 01/31/23 Amiodarone [Pacerone] 200 mg PO DAILY 08/22/22 01/31/23 Fludrocortisone [Florinef] 0.1 mg PO DAILY 08/22/22 01/31/23 Loperamide [Imodium] 2 mg PO DAILY PRN 01/31/23 01/31/23 valACYclovir [Valtrex] 1,000 mg PO TID 7 Days #42 tablet 01/31/23 - Allergies Allergies/Adverse Reactions: Allergies Allergy/AdvReac Type Severity Reaction Status Date / Time No Known Drug Allergies Allergy Verified 01/31/23 14:42 - Social History Does the pt smoke?: No Smoking Status: Never smoker Does the pt drink ETOH?: No Does the pt have substance abuse?: No - Immunizations Immunizations are current?: Yes - POLST Patient has POLST: No PD ED PE NORMAL - General General: Alert and oriented X 3, No acute distress, Well developed/nourished - HEENT HEENT: Atraumatic, PERRL, EOMI, Moist mucous membranes, Pharynx benign - Neck Neck: Supple, no meningeal sign - Cardiac Cardiac: RRR - Respiratory Respiratory: No respiratory distress, Clear bilaterally - Abdomen Abdomen: Soft, Non tender - Derm Derm: Other (Rash to L scalp; erythema with raised areas and few open spots with crusting). No: No rash - Neuro Neuro: Alert and oriented X 3, validation intern 2-12 intact, No motor deficit, No sensory deficit, Normal speech PD ED PE EXPANDED - HEENT HEENT Visual: 1 - rash - Eyes Eyes: Anterior chambers clear, Other (No fluorescein uptake, intraocular pressure is 18). No: Fluorescein uptake Results - Vitals Vitals: Vital Signs - 24 hr 01/31/23 01/31/23 14:33 15:51 Temperature 36.2 C L 36.3 C L Heart Rate 77 70 Respiratory 16 18 Rate Blood Pressure 147/86 H 137/96 H O2 Saturation 99 96 Oxygen O2 Source Room air PD Medical Decision Making - ED course ED course: Patient presenting for evaluation of left-sided headache and rash that has been present for 1 day. His vital signs are stable. His neuro exam is normal and he is ambulating without any difficulty. Although he is on warfarin, I do not see any exam findings to suggest an intracranial hemorrhage. Patient has not had any trauma. His visual acuity is normal and he has no signs of increased intraocular pressure.His rash appears consistent with shingles.I do not see any signs of ocular involvement at this time.Patient was counseled regarding his diagnosis and advised on treatment plan to include valacyclovir for the next week.He is already on fludrocortisone for history of orthostatic hypotension so will not add additional steroids to his regiment. Patient is advised that he needs close follow-up with his PCP as well as ophthalmology. He is advised on concerning symptoms to return for. Departure - Departure Disposition: 01 Home, Self Care Clinical Impression: Herpes zoster Condition: Stable Instructions: ED Shingles Prescriptions: valACYclovir [Valtrex] 1,000 mg PO TID 7 Days #42 tablet Comments: I believe your rash and your headache today are from shingles. I am starting you on an antiviral medication called valacyclovir which she will take 3 times a day for 1 week. I sent this prescription to [facility] in [place]. You also need close follow up with an opthalmologist. Please call your eye doctor and PCP to be seen in the next week. Please return to the emergency department with any worsening symptoms. Discharge Date/Time: 01/31/23 16:15
[2023-01-31 15:52] VITALS: BP 137/96
[2023-01-31] MEDS ORDERED: valACYclovir 500 MG TABLET PO ONE (16:00)
== END 2023-01-31 16:15 | disposition home or self-care (01) ==
LOC: ED 14:32
DX: B02.9 Zoster without complications (principal)
CPT/HCPCS: 99282; 99283; A9270

== ENCOUNTER 2023-06-27 07:29 | Outpatient (CLI) | payer MEDICARE, BC ==
[2023-06-27 11:54] LABS: BASOPHILS # (AUTO) 0.1 10^3/uL (0.0-0.1); BASOPHILS % (AUTO) 1.4 %; EOSINOPHILS # (AUTO) 0.6 10^3/uL (0.0-0.7); EOSINOPHILS % (AUTO) 10.7 %; HCT - HEMATOCRIT 42.1 % (42.0-52.0); HGB - HEMOGLOBIN 13.5 g/dL (14.0-18.0); LYMPHOCYTES # (AUTO) 1.7 10^3/uL (1.5-3.5); MEAN CORPUSCULAR HEMOGLOBIN 29.7 pg (27.0-31.0); MEAN CORPUSCULAR HGB CONC 32.1 g/dL (32.0-36.0); MEAN CORPUSCULAR VOLUME 92.5 fL (80.0-94.0); MEAN PLATELET VOLUME 11.4 fL (7.4-11.4); MONOCYTES # (AUTO) 0.5 10^3/uL (0.0-1.0); MONOCYTES % (AUTO) 10.5 %; NEUTROPHILS # (AUTO) 2.2 10^3/uL (1.5-6.6); NEUTROPHILS % (AUTO) 43.2 %; RED BLOOD COUNT 4.55 10^6/uL (4.70-6.10); RED CELL DISTRIBUTION WIDTH 13.9 % (12.0-15.0); WHITE BLOOD COUNT 5.1 x10^3/uL (4.8-10.8)
[2023-06-27 12:04] LABS: SLIDE REVIEW? Indicated
[2023-06-27 12:21] LABS: PLATELET ESTIMATE, MANUAL NORMAL (130-450,000) (NORMAL); PLATELET MORPHOLOGY PLATELET CLUMPING (NORMAL); RBC MORPHOLOGY (MULTIPLE) NORMAL APPEARANCE (NORMAL)
[2023-06-27 12:38] LABS: ALBUMIN 4.2 g/dL (3.2-5.5); ALBUMIN/GLOBULIN RATIO 1.6 (1.0-2.2); ALKALINE PHOSPHATASE 46 IU/L (42-121); ALT ALANINE AMINOTRANSFERASE 20 IU/L (10-60); AST ASPARTATE AMINOTRANSFERASE 23 IU/L (10-42); BILIRUBIN,TOTAL 0.4 mg/dL (0.2-1.0); BUN - BLOOD UREA NITROGEN 23 mg/dL (6-20); CALCIUM 9.3 mg/dL (8.5-10.3); CARBON DIOXIDE - CO2 30 mmol/L (21-32); CHLORIDE 107 mmol/L (101-111); CHOL/HDL RATIO 2.6 (<5.0); CHOLESTEROL 173 mg/dL; GFR - MDRD 72 (>89); GLUCOSE 94 mg/dL (74-104); HDL CHOLESTEROL 67 mg/dL; LDL CHOLESTEROL,CALCULATED 94 mg/dL; LDL/HDL RATIO 1.4 (<3.6); SODIUM 141 mmol/L (135-145); TOTAL PROTEIN 6.9 g/dL (6.4-8.9); TRIGLYCERIDES 62 mg/dL (48-352); VLDL CHOLESTEROL 12 mg/dL
== END 2023-06-27 07:30 | disposition home or self-care (01) ==
LOC: LAB.N 07:29
PROVIDERS: ATTEND Physician Assistant
DX: I48.0 Paroxysmal atrial fibrillation (principal); E78.5 Hyperlipidemia, unspecified; C61 Malignant neoplasm of prostate; D69.6 Thrombocytopenia, unspecified; Z90.79 Acquired absence of other genital organ(s)
CPT/HCPCS: 36415; 80053; 80061; 83721; 84153; 85025

== ENCOUNTER 2023-07-24 10:24 | Outpatient (CLI) | payer MEDICARE, BC ==
--- NOTE | 2023-07-24 18:11 | XRAY Report ---
PROCEDURE: Knee 4 View BILAT INDICATIONS: BILATERAL OSTEOARTHRITIS OF KNEES TECHNIQUE: 2 views of the knee was obtained. COMPARISON: None FINDINGS: Bones: No fractures or dislocations. No suspicious bony lesions. Moderate medial and lateral compar tmental joint space narrowing with small marginal osteophytes present. Soft tissues: Moderate knee joint effusion. No suspicious soft tissue calcifications or masses. Scarring vascular calcification IMPRESSION: Osteoarthritis with bilateral joint effusions and sclerotic vascular calcification Reviewed by: Agustin Watson MD on 07/24/2023 5:09 PM SHAWN Approved by: Agustin Watson MD on 07/24/2023 5:09 PM SHAWN Station ID: [id number]
== END 2023-07-24 10:25 | disposition home or self-care (01) ==
LOC: DI 10:24
PROVIDERS: ATTEND Physician Assistant
DX: M17.0 Bilateral primary osteoarthritis of knee (principal); I70.203 Unspecified atherosclerosis of native arteries of extremities, bilateral legs

== ENCOUNTER 2024-03-29 10:35 | Outpatient (CLI) | payer MEDICARE, BC ==
--- NOTE | 2024-03-29 11:14 | XRAY Report ---
PROCEDURE: Chest 2V INDICATIONS: OPEN HEART SURGERY TECHNIQUE: 2 views of the chest were acquired. COMPARISON: None. FINDINGS: Surgical changes and devices: Cerclage wires overlie the chest. Numerous surgical clips overlie the heart. Lungs and pleura: There is opacity throughout the right lower lobe with prominent basilar regions. S mall bilateral pleural effusions. No pneumothorax Mediastinum: Mediastinal contours appear normal. Heart size is normal. Bones and chest wall: No suspicious bony lesions. Overlying soft tissues appear unremarkable. IMPRESSION: Right lower lobe opacities concerning for pneumonia. Small pleural effusions Reviewed by: Jon Gomez MD on 03/29/2024 10:13 AM SHAWN Approved by: Jon Gomez MD on 03/29/2024 10:13 AM SHAWN Station ID: [id number]
== END 2024-03-29 10:36 | disposition home or self-care (01) ==
LOC: DI 10:35
PROVIDERS: ATTEND Registered Nurse Registered Nurse First Assistant
DX: J90 Pleural effusion, not elsewhere classified (principal); R91.8 Other nonspecific abnormal finding of lung field; Z95.1 Presence of aortocoronary bypass graft

== ENCOUNTER 2024-04-06 09:46 | Outpatient (CLI) | payer MEDICARE, BC ==
--- NOTE | 2024-04-06 10:32 | XRAY Report ---
PROCEDURE: Chest 2V INDICATIONS: SP CABG TECHNIQUE: 2 views of the chest were acquired. COMPARISON: Chest x-ray 03/29/2024 FINDINGS: Surgical changes and devices: Sternal wires. Lungs and pleura: Persistent appearance of bilateral effusions, minimally improved. Mediastinum: Mediastinal contours appear normal. Heart size is normal. Bones and chest wall: No suspicious bony lesions. Overlying soft tissues appear unremarkable. IMPRESSION: Persistent appearance of bilateral effusions, minimally improved. Reviewed by: Nevaeh Hernández MD on 04/06/2024 10:30 AM PDT Approved by: Nevaeh Hernández MD on 04/06/2024 10:30 AM PDT Station ID: [id number]
== END 2024-04-06 09:47 | disposition home or self-care (01) ==
LOC: DI 09:46
PROVIDERS: ATTEND Internal Medicine
DX: J90 Pleural effusion, not elsewhere classified (principal); Z95.1 Presence of aortocoronary bypass graft

== ENCOUNTER 2024-06-30 07:47 | Outpatient (CLI) | payer MEDICARE, BC ==
[2024-06-30 18:17] LABS: BILIRUBIN,URINE NEGATIVE (NEGATIVE); GLUCOSE, URINE (UA) NEGATIVE (NEGATIVE); KETONES,URINE (UA) NEGATIVE (NEGATIVE); LEUKOCYTE ESTERASE, URINE NEGATIVE (NEGATIVE); NITRITE,URINE NEGATIVE (NEGATIVE); OCCULT BLOOD,URINE TRACE-INTA (NEGATIVE); PROTEIN,URINE NEGATIVE (NEGATIVE); UROBILINOGEN,URINE 0.2 (NORMAL) E.U./dL (NORMAL)
[2024-06-30 18:29] LABS: CLARITY,URINE CLEAR (CLEAR)
[2024-06-30 18:29] LABS: BASOPHILS # (AUTO) 0.1 10^3/uL (0.0-0.1); BASOPHILS % (AUTO) 0.8 %; EOSINOPHILS # (AUTO) 0.7 10^3/uL (0.0-0.7); EOSINOPHILS % (AUTO) 9.9 %; HCT - HEMATOCRIT 39.7 % (42.0-52.0); HGB - HEMOGLOBIN 12.1 g/dL (14.0-18.0); LYMPHOCYTES # (AUTO) 1.8 10^3/uL (1.5-3.5); LYMPHOCYTES % (AUTO) 27.4 %; MEAN CORPUSCULAR HEMOGLOBIN 26.8 pg (27.0-31.0); MEAN CORPUSCULAR HGB CONC 30.5 g/dL (32.0-36.0); MEAN PLATELET VOLUME 10.3 fL (7.4-11.4); MONOCYTES # (AUTO) 0.6 10^3/uL (0.0-1.0); MONOCYTES % (AUTO) 9.5 %; NEUTROPHILS # (AUTO) 3.4 10^3/uL (1.5-6.6); NEUTROPHILS % (AUTO) 52.1 %; PLT - PLATELET COUNT 258 10^3/uL (130-450); RED BLOOD COUNT 4.51 10^6/uL (4.70-6.10); RED CELL DISTRIBUTION WIDTH 17.4 % (12.0-15.0); WHITE BLOOD COUNT 6.6 x10^3/uL (4.8-10.8)
[2024-06-30 18:43] LABS: ALBUMIN 4.1 g/dL (3.2-5.5); ALBUMIN/GLOBULIN RATIO 1.3 (1.0-2.2); ALKALINE PHOSPHATASE 64 IU/L (42-121); ALT ALANINE AMINOTRANSFERASE 11 IU/L (10-60); AST ASPARTATE AMINOTRANSFERASE 15 IU/L (10-42); BILIRUBIN,TOTAL 0.4 mg/dL (0.2-1.0); BUN - BLOOD UREA NITROGEN 27 mg/dL (6-20); CALCIUM 9.6 mg/dL (8.5-10.3); CARBON DIOXIDE - CO2 28 mmol/L (21-32); CHLORIDE 105 mmol/L (101-111); CHOL/HDL RATIO 2.4 (<5.0); CHOLESTEROL 152 mg/dL; CREATININE 0.9 mg/dL (0.6-1.3); GFR - MDRD 81 (>89); GLUCOSE 89 mg/dL (74-104); HDL CHOLESTEROL 63 mg/dL; LDL CHOLESTEROL,CALCULATED 74 mg/dL; LDL/HDL RATIO 1.2 (<3.6); POTASSIUM 4.2 mmol/L (3.5-4.5); SODIUM 139 mmol/L (135-145); TOTAL PROTEIN 7.3 g/dL (6.4-8.9); TRIGLYCERIDES 74 mg/dL; VLDL CHOLESTEROL 15 mg/dL
[2024-06-30 18:44] LABS: BACTERIA,URINE None Seen /HPF (None Seen); RBC,URINE None Seen /HPF (0-5); SQUAMOUS EPITHELIAL CELL,UR NONE SEEN (<= Few); WBC,URINE 0-3 /HPF (0-3)
[2024-06-30 18:50] LABS: THYROID STIMULATING HORMONE 1.16 uIU/mL (0.34-5.60)
[2024-06-30 21:17] LABS: ESTIMATED AVERAGE GLUCOSE 126 mg/dL (70-100)
== END 2024-06-30 07:48 | disposition home or self-care (01) ==
LOC: LAB.N 07:47
PROVIDERS: ATTEND Physician Assistant
DX: Z01.812 Encounter for preprocedural laboratory examination (principal); E78.5 Hyperlipidemia, unspecified; I48.0 Paroxysmal atrial fibrillation; C61 Malignant neoplasm of prostate; R73.9 Hyperglycemia, unspecified; N39.0 Urinary tract infection, site not specified; Z90.79 Acquired absence of other genital organ(s)
CPT/HCPCS: 36415; 80053; 80061; 81001; 83036; 83721; 84153; 84443; 85025; 87086